=== PATIENT | female | born 1950 | race American Indian/Alaskan Native ===

== ENCOUNTER 2017-09-29 06:48 | Emergency (ER) | payer MEDICARE ==
[2017-09-29 07:37] VITALS: BP 158/72
[2017-09-29] MEDS ORDERED: TRIPLE ANTIBIOTIC TP ONE (07:52)
[2017-09-29] MEDS ORDERED: MOTRIN PO ONE (07:52)
--- NOTE | 2017-09-29 07:58 | Emergency Department Report ---
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 Patient states that she was getting out of her car this morning and lost her footing and fell from a seated position to the floor. Patient states she fell and hit her face on the concrete floor. Patient states she sustained this abrasion on the lasts side of her face. Patient states she did not have any loss of consciousness after incident. Since issue that would get up and she was placed. Patient states she is on to dialysis and came here after. She denies any headache, dizziness, blurry vision, nausea, vomiting. When Fall Occurred: 1 hour [employer] [employer] Fall Witnessed: no Place Fall Occurred: home Loss of Consciousness: none Prolonged Down Time?: no Symptoms Prior to Fall: none Location: face Severity: moderate Severity scale (0 -10): 5 Quality: dull Context: tripped/slipped Associated Symptoms: denies: headache, neck pain, numbness, weakness, shortness of breath, unable to walk, lightheaded - Related Data Home Medications Medication Instructions Recorded Confirmed Last Taken Insulin Glargine,Hum.rec.anlog 6 units SC BID 10/31/13 04/29/16 05/08/16 [Lantus] Insulin Glargine,Hum.rec.anlog 13 units SC QHS 10/31/13 05/10/16 05/08/16 [Lantus] Sevelamer HCl [Renagel] 2 tab PO TID 10/31/13 05/10/16 05/08/16 hydrALAZINE [Apresoline TAB] 50 mg PO TID 10/31/13 05/10/16 05/08/16 Furosemide [Lasix] 40 mg PO DAILY 11/02/13 05/10/16 05/08/16 Previous Rx's Medication Instructions Recorded Last Taken Type Aspirin [Aspirin BABY CHEW TAB] 81 mg PO QDAY #30 tab.chew 05/02/16 05/08/16 Rx AtorvaSTATin [Lipitor] 80 mg PO QHS #30 tablet 05/02/16 05/08/16 Rx ISOSORBIDE MONOnitrate [Imdur ER] 60 mg PO QDAY #30 tablet 05/02/16 05/08/16 Rx Metoprolol [Lopressor TAB] 50 mg PO BID #60 tablet 05/02/16 05/08/16 Rx Prasugrel [Effient] 10 mg PO QDAY #30 tablet 05/02/16 05/08/16 Rx amLODIPine [Norvasc] 10 mg PO QDAY #30 tablet 05/02/16 05/08/16 Rx Ibuprofen [Motrin 800 MG tab] 800 mg PO Q8H PRN #21 tablet 05/10/16 Unknown Rx Cephalexin [Keflex] 500 mg PO BID #10 capsule 09/29/17 Unknown Rx HYDROcodone/APAP 5-325 [[facility] 1 each PO Q6HR PRN #12 tablet 09/29/17 Unknown Rx 5/325] Naproxen [Naprosyn] 500 mg PO BID #30 tablet 09/29/17 Unknown Rx Neomycin/Bacitracin/Polymyxinb 1 applic TP BID #1 tube 09/29/17 Unknown Rx [Triple Antibiotic Ointment] Allergies Allergy/AdvReac Type Severity Reaction Status Date / Time codeine Allergy Dizziness Verified 09/29/17 07:31 heparin Allergy Itching Verified 09/29/17 07:31 morphine Allergy Vomiting Verified 09/29/17 07:31 shell fish Allergy Rash Uncoded 09/29/17 07:31 ED Review of Systems ROS: Stated complaint: FALL Other details as noted in HPI Constitutional: denies: chills, fever Eyes: denies: eye pain, eye discharge, vision change ENT: denies: ear pain, throat pain, dental pain, hearing loss Respiratory: denies: cough, shortness of breath, wheezing Cardiovascular: denies: chest pain, palpitations Endocrine: no symptoms reported Gastrointestinal: denies: abdominal pain, nausea, vomiting, diarrhea Genitourinary: denies: urgency, dysuria, discharge Musculoskeletal: denies: back pain, joint swelling, arthralgia Skin: other ( left cheeck pain and wound). denies: rash, lesions, pruritus Neurological: denies: headache, weakness, paresthesias Psychiatric: denies: anxiety, depression Hematological/Lymphatic: denies: easy bleeding, easy bruising ED Past Medical Hx - Past Medical History Hx Hypertension: Yes (FOR 5 YRS) Hx Heart Attack/AMI: Yes (12-26-12) Hx Congestive Heart Failure: No Hx Diabetes: Yes (FOR 10 YRS) Hx GERD: Yes Hx Liver Disease: No Hx Renal Disease: Yes (graft left arm. dialysis MWF) Hx Seizures: No Hx Asthma: No Hx COPD: No Hx HIV: No Additional medical history: CAD - Surgical History Hx Coronary Stent: Yes (X1 IN 2007 & REPLACED 07-20-12) - Social History Smoking Status: Never Smoker Substance Use Type: None - Medications Home Medications: Home Medications Medication Instructions Recorded Confirmed Last Taken Type Insulin Glargine,Hum.rec.anlog 6 units SC BID 10/31/13 04/29/16 05/08/16 History [Lantus] Insulin Glargine,Hum.rec.anlog 13 units SC QHS 10/31/13 05/10/16 05/08/16 History [Lantus] Sevelamer HCl [Renagel] 2 tab PO TID 10/31/13 05/10/16 05/08/16 History hydrALAZINE [Apresoline TAB] 50 mg PO TID 10/31/13 05/10/16 05/08/16 History Furosemide [Lasix] 40 mg PO DAILY 11/02/13 05/10/16 05/08/16 History Aspirin [Aspirin BABY CHEW TAB] 81 mg PO QDAY #30 tab.chew 05/02/16 05/10/16 Rx AtorvaSTATin [Lipitor] 80 mg PO QHS #30 tablet 05/02/16 05/10/16 05/08/16 Rx ISOSORBIDE MONOnitrate [Imdur ER] 60 mg PO QDAY #30 tablet 05/02/16 05/10/16 Rx Metoprolol [Lopressor TAB] 50 mg PO BID #60 tablet 05/02/16 05/10/16 05/08/16 Rx Prasugrel [Effient] 10 mg PO QDAY #30 tablet 05/02/16 05/10/16 05/08/16 Rx amLODIPine [Norvasc] 10 mg PO QDAY #30 tablet 05/02/16 05/10/16 05/08/16 Rx Ibuprofen [Motrin 800 MG tab] 800 mg PO Q8H PRN #21 tablet 05/10/16 Unknown Rx Cephalexin [Keflex] 500 mg PO BID #10 capsule 09/29/17 Unknown Rx HYDROcodone/APAP 5-325 [[facility] 1 each PO Q6HR PRN #12 tablet 09/29/17 Unknown Rx 5/325] Naproxen [Naprosyn] 500 mg PO BID #30 tablet 09/29/17 Unknown Rx Neomycin/Bacitracin/Polymyxinb 1 applic TP BID #1 tube 09/29/17 Unknown Rx [Triple Antibiotic Ointment] ED Physical Exam - General Limitations: No Limitations General appearance: alert, in no apparent distress - Head Head exam: Present: atraumatic, normocephalic - Eye Eye exam: Present: normal appearance - ENT ENT exam: Present: mucous membranes moist - Neck Neck exam: Present: normal inspection - Respiratory Respiratory exam: Present: normal lung sounds bilaterally. Absent: respiratory distress - Cardiovascular Cardiovascular Exam: Present: regular rate, normal rhythm. Absent: systolic murmur, diastolic murmur, rubs, gallop - GI/Abdominal GI/Abdominal exam: Present: soft, normal bowel sounds - Extremities Exam Extremities exam: Present: normal inspection - Back Exam Back exam: Present: normal inspection - Neurological Exam Neurological exam: Present: alert, oriented X3 - Psychiatric Psychiatric exam: Present: normal affect, normal mood - Skin Skin exam: Present: warm, dry, intact, normal color, erythema, abrasion (to the left cheeck, 4-5 cm in diameter). Absent: rash ED Course Vital Signs 09/29/17 09/29/17 07:31 08:40 Temperature 97.5 F L Pulse Rate 63 Respiratory 20 18 Rate Blood Pressure 158/72 O2 Sat by Pulse 100 Oximetry ED Medical Decision Making - Radiology Data Radiology results: report reviewed, image reviewed Ordering Physician: IRIS VICTOR Date of Service: 09/29/17 Procedure(s): CT facial bones wo con Accession Number(s): [id number] cc: IRIS VICTOR CT facial bones without contrast: Facial trauma. Transverse images are obtained through the facial bones with coronal and sagittal reformatted images. There is soft tissue swelling over the left facial region. No underlying bone or sinus abnormality identified. There is a mild deviation of the mid nasal septum to the left. Impression: Soft tissue injury of the left facial region. Transcribed By: THAD Dictated By: DARRYL CAMPBELL MD Electronically Authenticated By: DARRYL CAMPBELL MD Signed Date/Time: 09/29/1727 CT HEAD WITHOUT CONTRAST:09/29/17 06:48:00 CLINICAL: Fall and headache. TECHNIQUE: 2.5-mm noncontrast scans. COMPARISON:10/31/13 FINDINGS: Left frontal lobe encephalomalacia is not significantly changed compared to prior exam. Stable mild ex-vacuo dilatation of the left lateral ventricle. The ventricles and sulci are otherwise normal for age. No other abnormal hypodensity. No mass or mass effect. No hemorrhage, edema or extra-axial collection. The sinuses are clear. Normal orbits and soft tissues. The calvarium and skull base are intact. IMPRESSION: Chronic left frontal lobe infarct and no acute change. No evidence of traumatic injury. Transcribed By: REF Dictated By: SANTINO ANGULO MD Electronically Authenticated By: SANTINO ANGULO MD Signed Date/Time: 09/29/17 0837 - Medical Decision Making This is a 67-year-old female presents with facial abrasion from fall ED course: CT of the facial bones ordered. Positive soft tissue swelling on the left facial side no other abnormalities C report above I discussed his findings with the patient and her daughter. I discussed with the patient acute care and to keep clean. I discussed with the patient should be sent home on antibiotics than an infectio continue naproxen as needed for pain Vital signs are normal. Patient is in no acute distress. I discussed with the patient she has any worsening or new onset of symptoms to return to ED immediately. Facial abrasion was cleaned, Triple Antibiotic supplied. oil emulsion dressing applied. Critical care attestation.: If time is entered above; I have spent that time in minutes in the direct care of this critically ill patient, excluding procedure time. ED Disposition Clinical Impression: Abrasion of face without infection Disposition: DC-01 TO HOME OR SELFCARE Is pt being admited?: No Does the pt Need Aspirin: No Condition: Stable Instructions: Acute Wound Care (ED), Abrasion (ED) Additional Instructions: Make sure to follow up with the primary care physician as discussed. Take your medications as you've been prescribed. Your wound will heal on its own. Continue to apply Triple Antibiotic daily If you have any worsening symptoms or develop new symptoms please return to ED immediately. Prescriptions: Cephalexin [Keflex] 500 mg PO BID #10 capsule HYDROcodone/APAP 5-325 [[facility] 5/325] 1 each PO Q6HR PRN #12 tablet PRN Reason: Pain Naproxen [Naprosyn] 500 mg PO BID #30 tablet Neomycin/Bacitracin/Polymyxinb [Triple Antibiotic Ointment] 1 applic TP BID #1 tube Referrals: PRIMARY CAREMD [Primary Care Provider] - 3-5 Days SONG MANNING MD [Referring] - 3-5 Days [facility] [address] [Outside] - 3-5 Days [facility] [Outside] - 3-5 Days Forms: Accompanied Note, Work/School Release Form(ED) Time of Disposition: 09:13
--- NOTE | 2017-09-29 08:46 | Cat Scan Report ---
CT facial bones without contrast: Facial trauma. Transverse images are obtained through the facial bones with coronal and sagittal reformatted images. There is soft tissue swelling over the left facial region. No underlying bone or sinus abnormality identified. There is a mild deviation of the mid nasal septum to the left. Impression: Soft tissue injury of the left facial region.
--- NOTE | 2017-09-29 08:47 | Cat Scan Report ---
CT HEAD WITHOUT CONTRAST:09/29/17 06:48:00 CLINICAL: Fall and headache. TECHNIQUE: 2.5-mm noncontrast scans. COMPARISON:10/31/13 FINDINGS: Left frontal lobe encephalomalacia is not significantly changed compared to prior exam. Stable mild ex-vacuo dilatation of the left lateral ventricle. The ventricles and sulci are otherwise normal for age. No other abnormal hypodensity. No mass or mass effect. No hemorrhage, edema or extra-axial collection. The sinuses are clear. Normal orbits and soft tissues. The calvarium and skull base are intact. IMPRESSION: Chronic left frontal lobe infarct and no acute change. No evidence of traumatic injury.
== END 2017-09-29 09:56 | disposition home or self-care (01) ==
LOC: ED 06:48
DX: S00.81XA Abrasion of other part of head, initial encounter (principal); E11.22 Type 2 diabetes mellitus with diabetic chronic kidney disease; I12.0 Hypertensive chronic kidney disease with stage 5 chronic kidney disease or end stage renal disease; N18.6 End stage renal disease; I25.2 Old myocardial infarction; K21.9 Gastro-esophageal reflux disease without esophagitis; I25.10 Atherosclerotic heart disease of native coronary artery without angina pectoris; Z95.818 Presence of other cardiac implants and grafts; Z88.5 Allergy status to narcotic agent; Z99.2 Dependence on renal dialysis; Z91.013 Allergy to seafood; W01.0XXA Fall on same level from slipping, tripping and stumbling without subsequent striking against object, initial encounter; Y93.89 Activity, other specified; Y99.8 Other external cause status; Y92.009 Unspecified place in unspecified non-institutional (private) residence as the place of occurrence of the external cause
CPT/HCPCS: 70450; 70486; 99283; 99284; A6250

== ENCOUNTER 2017-10-07 10:54 | Outpatient (CLI) | payer MEDICARE ==
--- NOTE | 2017-10-08 11:14 | Mammography Report ---
Screening mammogram: Routine July 2015. There is a heterogeneous and diffusely distributed symmetric fibroglandular pattern. No architectural distortion or mass identified. There is been a marked progression of both vascular and secretory calcifications in both breasts. The findings are not otherwise remarkable. CAD used. Impression: No suspicious findings. The significant advancement in calcifications may be related to generalized disease process. Recommendation: Annual mammogram followup. BI-RADS CATEGORY: 2 = Benign ACR BI-RADS MAMMOGRAPHIC CODES: 0 = Needs additional imaging evaluation; 1 = Negative; 2 = Benign; 3 = Probably benign; 4 = Suspicious; 5 = Malignant; 6 = Known biopsy-proven malignancy COMMENT: 1. Dense breast tissue, i.e., adenosis, fibrocystic changes, etc., may obscure an underlying neoplasm. 2. Approximately 10% of cancers are not detected with mammography. 3. A negative mammography report should not delay biopsy if a clinically suspicious mass is present.
== END 2017-10-07 10:55 | disposition home or self-care (01) ==
LOC: SPVWC 10:54
PROVIDERS: ATTEND Obstetrics & Gynecology Gynecology
DX: Z12.31 Encounter for screening mammogram for malignant neoplasm of breast (principal); I12.0 Hypertensive chronic kidney disease with stage 5 chronic kidney disease or end stage renal disease; N18.6 End stage renal disease; E11.22 Type 2 diabetes mellitus with diabetic chronic kidney disease; I25.10 Atherosclerotic heart disease of native coronary artery without angina pectoris
CPT/HCPCS: 77067

== ENCOUNTER 2018-10-20 10:45 | Outpatient (CLI) | payer MEDICARE ==
--- NOTE | 2018-10-21 09:42 | Mammography Report ---
BILATERAL DIGITAL SCREENING MAMMOGRAM with CAD : 10/20/18 10:45:00 CLINICAL: Routine screening. COMPARISON:10/07/17 and 08/13/15 FINDINGS: The breasts are heterogeneously dense and the breast density has progressively increased over the years. Periareolar skin thickening has waxed and waned since 2013.Bilateral benign calcifications have increased and are mostly benign arterial calcifications. No mass, architectural distortion or suspicious calcifications. IMPRESSION: No mammographic evidence of malignancy. Progressive increased density and calcifications is consistent with systemic disease such as chronic renal failure or chronic heart failure. BI-RADS CATEGORY: 2 -- Benign RECOMMENDATION: Routine mammographic screening in one year. COMMENT: Patient follow-up letters are generated by our [employer] application.
== END 2018-10-20 10:46 | disposition home or self-care (01) ==
LOC: SPVWC 10:45
PROVIDERS: ATTEND Internal Medicine
DX: Z12.31 Encounter for screening mammogram for malignant neoplasm of breast (principal); E78.00 Pure hypercholesterolemia, unspecified; I12.0 Hypertensive chronic kidney disease with stage 5 chronic kidney disease or end stage renal disease; E11.22 Type 2 diabetes mellitus with diabetic chronic kidney disease; N18.6 End stage renal disease; Z90.89 Acquired absence of other organs
CPT/HCPCS: 77067

== ENCOUNTER 2018-12-07 08:17 | Outpatient (CLI) | payer MEDICARE ==
[2018-12-07] MEDS ORDERED: AD OINTMENT TP SCH (09:00)
[2018-12-07] MEDS ORDERED: XYLOCAINE TOPICAL 4% TP ONE (09:00)
== END 2018-12-07 08:18 | disposition home or self-care (01) ==
LOC: WOUND 08:17
PROVIDERS: ATTEND Surgery
DX: E11.622 Type 2 diabetes mellitus with other skin ulcer (principal); L97.222 Non-pressure chronic ulcer of left calf with fat layer exposed; L97.822 Non-pressure chronic ulcer of other part of left lower leg with fat layer exposed; E11.22 Type 2 diabetes mellitus with diabetic chronic kidney disease; I12.0 Hypertensive chronic kidney disease with stage 5 chronic kidney disease or end stage renal disease; N18.6 End stage renal disease; I25.2 Old myocardial infarction; I25.10 Atherosclerotic heart disease of native coronary artery without angina pectoris
CPT/HCPCS: 11042; 11045; G0463; 99205; A6250